=== PATIENT | male | born 1960 | race Caucasian/White ===

== ENCOUNTER 2024-04-14 15:06 | Outpatient (OUT) | payer BC, SELFPAY ==
--- NOTE | 2024-04-14 | XR_ITS ---
The [address] [address] Patient Name: KIMBERLEY HOLLIS MRN: [id number] date: 1960 Sex: M Assigned Patient Location: Current Patient Location: Accession/Order Number: [id number] Exam Date: 04/14/2024 15:10 Report Date: 04/14/2024 16:15 At the request of: PERFECTO TEJADA Procedure: XR foot LT min 3V PROCEDURE: XR foot LT min 3V COMPARISON: None. HISTORY: LEFT FOOT PAIN FINDINGS: BONES:No acute fracture or dislocation. Moderate enthesopathic spurring of the calcaneus at the Achilles and plantar insertions. Degenerative changes with marginal osteophyte formation most significant first metatarsal-phalangeal joint and midfoot SOFT TISSUES:Negative. No visible soft tissue swelling. EFFUSION:None visible. OTHER: Negative. XR/XR foot LT min 3V IMPRESSION: Degenerative changes Electronically authenticated by: SAMANTHA QUINTANILLA Date: 04/14/2024 16:15
== END 2024-04-14 15:07 | disposition home or self-care (01) ==
PROVIDERS: Family Provider Family Medicine; Visit Provider Physician Assistant
DX: M79.672 Pain in left foot (principal)
CPT/HCPCS: 73630